=== PATIENT | male | born 1995 | race Caucasian/White ===

== ENCOUNTER 2017-03-21 09:12 | Emergency (ER) | payer BC, MEDICAID ==
[2017-03-21] MEDS ORDERED: Sodium Chloride 0.9% 10 ML Syringe FLUSH PRN (10:35)
[2017-03-21] MEDS ORDERED: Iopamidol 612 MG/ML 150 ML Bottle IVPUSH ONE (10:35)
--- NOTE | 2017-03-21 10:52 | EDM.PDOC ---
ED HPI GENERAL MEDICAL PROBLEM - General Chief Complaint: Abdominal Pain Stated Complaint: LT SIDE/RIB/SHOULDER PAIN Time Seen by Provider: 03/21/17 09:20 Source of Information: Reports: Patient History Limitations: Reports: No Limitations - History of Present Illness INITIAL COMMENTS - FREE TEXT/NARRATIVE: This is a 21-year-old male. He states over the last couple of days he' s been having pain when he breathes real deep this seems to go from his left upper quadrant up into his shoulder area. He indicates that he has fallen several times on his left side but doesn't think he's hurt anything but it was after these falls that he noticed this pain. He is also had somewhat of an upset stomach and a feeling of fullness in the left upper quadrant region. He denies any right upper quadrant tenderness or symptoms. He states that even driving on the road when he hit bumps it would cause pain it would go from his left upper quadrant into his left shoulder. He denies having fallen and any rib tenderness. He denies having held his elbow to his side when he fell or jammed it into his left upper quadrant area. He's had no fever no chills no significant cough or congestion. Right Abdomen Pain Score (Numeric/FACES): 10 - Related Data Allergies Allergy/AdvReac Type Severity Reaction Status Date / Time No Known Allergies Allergy Verified 03/21/17 09:22 Home Meds: Home Meds Hydrocodone/Acetaminophen [Hydrocodon-Acetaminophen 5-325] 1 each PO Q6H PRN # 12 tablet 03/21/17 [Rx] predniSONE 40 mg PO WITHBREAKFAST #5 tab 03/21/17 [Rx] Past Medical History - Past Surgical History HEENT Surgical History: Reports: Oral Surgery Other HEENT Surgeries/Procedures: wisdom teeth removed GI Surgical History: Reports: Hernia Repair/Other Social & Family History - Tobacco Use Smoking Status *Q: Never Smoker - Caffeine Use Caffeine Use: Reports: Coffee - Recreational Drug Use Recreational Drug Use: No ED ROS GENERAL - Review of Systems Review Of Systems: See Below Constitutional: Denies: Fever, Chills HEENT: Denies: Rhinitis Respiratory: Reports: Pleuritic Chest Pain. Denies: Cough, Hemoptysis Cardiovascular: Reports: Chest Pain. Denies: Lightheadedness Endocrine: Reports: No Symptoms GI/Abdominal: Reports: Abdominal Pain. Denies: Diarrhea, Nausea, Vomiting : Reports: No Symptoms Musculoskeletal: Reports: Shoulder Pain (Left shoulder pain that is very sharp in nature and seems to be related to his respirations and his left upper quadrant) Skin: Reports: No Symptoms Neurological: Reports: No Symptoms Psychiatric: Reports: No Symptoms Hematologic/Lymphatic: Reports: No Symptoms ED EXAM, GI/ABD - Physical Exam Exam: See Below Exam Limited By: No Limitations General Appearance: Alert, WD/WN, No Apparent Distress Eyes: Bilateral: Normal Appearance Ears: Normal External Exam Nose: Normal Inspection Throat/Mouth: Normal Inspection, Normal Lips, Normal Oropharynx, Normal Voice, No Airway Compromise Head: Normocephalic Neck: Supple Respiratory/Chest: No Respiratory Distress, Lungs Clear, Normal Breath Sounds, Other (Deep breathing seems to cause pain in his left shoulder, I palpated his ribs and the costochondral margin and none of them appear to be tender on palpation on the posterior lateral or anterior ribs or the costochondral margin on the left side or right side) Cardiovascular: Regular Rate, Rhythm, No Murmur GI/Abdominal Exam: Soft, Other (I can reproduce some of this sharp pain by deep palpation in his lateral flank area and slightly in the left upper quadrant area on palpation I do not feel his spleen however, I do not feel any organ enlargement noted) Back Exam: Full Range of Motion. No: CVA Tenderness (L), CVA Tenderness (R) Extremities: Normal Inspection, Normal Range of Motion Neurological: Alert, Oriented Psychiatric: Normal Affect, Normal Mood Skin Exam: Warm, Dry Course - Vital Signs Last Recorded V/S: Last Vital Signs Temp 97.2 F 03/21/17 09:18 Pulse 71 03/21/17 09:18 Resp 18 03/21/17 09:18 BP 145/89 H 03/21/17 09:18 Pulse Ox 100 03/21/17 09:18 - Orders/Labs/Meds Orders: Active Orders 24 hr Category Date Time Status Chest 2V [CR] Stat Exams 03/21/17 11:28 Taken Sodium Chloride 0.9% [Saline Flush] Med 03/21/17 10:35 Active 10 ml FLUSH ONETIME PRN Medication Orders Sodium Chloride (Saline Flush) 10 ml FLUSH ONETIME PRN PRN Reason: IV FLUSH Last Admin: 03/21/17 10:53 Dose: 10 ml Labs: Laboratory Tests 03/21/17 03/21/17 03/21/17 Range/Units 09:25 09:25 09:25 WBC 6.74 (4.23-9.07) K/mm3 RBC 5.09 (4.63-6.08) M/mm3 Hgb 15.5 (13.7-17.5) gm/L Hct 45.6 (40.1-51.0) % MCV 89.6 (79.0-92.2) fl MCH 30.5 (25.7-32.2) pg MCHC 34.0 (32.2-35.5) g/dl RDW Std Deviation 42.9 (35.1-43.9) fL Plt Count 153 L (163-337) K/mm3 MPV 11.4 (9.4-12.3) fl Neut % (Auto) 62.1 (34.0-67.9) % Lymph % (Auto) 22.4 (21.8-53.1) % [place] % (Auto) 11.6 (5.3-12.2) % Eos % (Auto) 3.7 (0.8-7.0) Baso % (Auto) 0.1 (0.1-1.2) % Neut # (Auto) 4.18 (1.78-5.38) K/mm3 Lymph # (Auto) 1.51 (1.32-3.57) K/mm3 [place] # (Auto) 0.78 (0.30-0.82) K/mm3 Eos # (Auto) 0.25 (0.04-0.54) K/mm3 Baso # (Auto) 0.01 (0.01-0.08) K/mm3 D-Dimer, Quantitative 0.31 (0.19-0.59) mg/L Sodium 142 (136-145) mEq/L Potassium 4.4 (3.5-5.1) mEq/L Chloride 105 (98-107) mEq/L Carbon Dioxide 29 (21-32) mEq/L Anion Gap 12.4 (5-15) BUN 12 (7-18) mg/dL Creatinine 1.3 (0.7-1.3) mg/dL Est Cr Clr Drug Dosing 99.88 mL/min Estimated GFR (MDRD) > 60 (>60) mL/min BUN/Creatinine Ratio 9.2 L (14-18) Glucose 106 (74-106) mg/dL Calcium 9.3 (8.5-10.1) mg/dL Total Bilirubin 0.9 (0.2-1.0) mg/dL AST 23 (15-37) U/L ALT 44 (16-63) U/L Alkaline Phosphatase 106 (46-116) U/L Total Protein 7.8 (6.4-8.2) g/dl Albumin 4.0 (3.4-5.0) g/dl Globulin 3.8 gm/dL Albumin/Globulin Ratio 1.1 (1-2) Meds: Medications Generic Name Dose Route Start Last Admin Trade Name Freq PRN Reason Stop Dose Admin Sodium Chloride 10 ml 03/21/17 10:35 03/21/17 10:53 Saline Flush FLUSH 10 ml ONETIME PRN Administration IV FLUSH Discontinued Medications Generic Name Dose Route Start Last Admin Trade Name Freq PRN Reason Stop Dose Admin Iopamidol 125 ml 03/21/17 10:35 03/21/17 10:53 Isovue-300 (61%) IVPUSH 03/21/17 10:36 125 ml ONETIME ONE Administration - Radiology Interpretation Free Text/Narrative:: CT the abdomen does not show any acute findings other than some increased stool in the colon the ribs the spleen all appear to be normal. Chest x-ray does not show any acute changes there is no lung contusion no obvious rib fractures LUNG noted - Re-Assessments/Exams Free Text/Narrative Re-Assessment/Exam: 03/21/17 11:32 I spoke to the patient regarding the CT scan of the abdomen and the d-dimer. It could be that he is got a pleuritic-type chest pain due to long trauma or irritation or may be a slight viral infection. I am going to do a chest x-ray on him to make sure there is no obvious abnormality to his lung tissues. 03/21/17 12:06 I spoke to the patient regarding the chest x-ray results. I believe he has a pleuritic-type chest pain may be due to his multiple falls may be skeletal viral infection. I'll place him on some prednisone and give him something to help with the soreness in the pain. Departure - Departure Time of Disposition: 12:07 Disposition: Home, Self-Care 01 Condition: Good Clinical Impression: Pleuritic chest pain - Discharge Information Prescriptions: Hydrocodone/Acetaminophen [Hydrocodon-Acetaminophen 5-325] 1 each PO Q6H PRN # 12 tablet PRN Reason: Pain predniSONE 40 mg PO WITHBREAKFAST #5 tab Referrals: PCP,None [Primary Care Provider] - Forms: ED Department Discharge Additional Instructions: Gentle activity over the next several days, take the prednisone faithfully every morning for the next 5 days to help with the pleuritic type chest pain, take the medicine for pain as needed but be very careful about taking it and doing any sort of safety or sensitive job at work since it can cloud your memory and make you sleepy, if the symptoms seem to worsen or you develop a fever return to the ER immediately. - My Orders Last 24 Hours: My Active Orders 03/21/17 10:35 Sodium Chloride 0.9% [Saline Flush] 10 ml FLUSH ONETIME PRN 03/21/17 11:28 Chest 2V [CR] Stat - Assessment/Plan Last 24 Hours: My Active Orders 03/21/17 10:35 Sodium Chloride 0.9% [Saline Flush] 10 ml FLUSH ONETIME PRN 03/21/17 11:28 Chest 2V [CR] Stat
--- NOTE | 2017-03-21 11:16 | CT ---
CT abdomen and pelvis Technique: Multiple axial sections were obtained from above the dome of the diaphragm inferiorly through the pubic symphysis. Intravenous contrast was utilized. No oral contrast has been given. Comparison: No prior study. Findings: Small portion of the visualized lung bases are clear. Liver shows no focal parenchymal abnormality. Spleen appears within normal limits. Gallbladder contains no calcified gallstones. Adrenal glands show no nodule. Kidneys show symmetric contrast enhancement without hydronephrosis or mass. Pancreas is within normal limits. Aorta shows no aneurysmal dilatation. No retroperitoneal adenopathy or mesenteric abnormalities are seen. Small fat-containing umbilical hernia is incidentally noted. No pelvic mass or adenopathy is seen. Delayed images were obtained through the bladder which shows contrast within the distal ureters and within the bladder. No pelvic mass or adenopathy is seen. Appendix is seen which appears normal in size. No inflammatory change or free fluid is seen. Mild increased stool is noted throughout the colon. Bone window settings were reviewed which appears within normal limits for the patient's age. Impression: 1. Slight increased stool within the colon. Nothing acute is identified on CT study of the abdomen and pelvis. Diagnostic code #2
--- NOTE | 2017-03-21 16:54 | CR ---
Chest: Two views of the chest are obtained. Comparison: No previous study. Minimal scoliosis is noted within the upper thoracic spine. Lungs are clear. Heart size and mediastinum are normal. Impression: 1. Incidental finding. Nothing acute is seen. Diagnostic code #2
== END 2017-03-21 12:15 | disposition home or self-care (01) ==
LOC: JD.ED 09:12
DX: R07.81 Pleurodynia (principal); Z98.890 Other specified postprocedural states
CPT/HCPCS: 36415; 71046; 74177; 80053; 85025; 85379; 99284; J7050; Q9967; 99283

== ENCOUNTER 2019-10-04 09:40 | Emergency (ER) | payer OTHER ==
--- NOTE | 2019-10-04 10:12 | EDM.PDOC ---
ED HPI GENERAL MEDICAL PROBLEM - General Chief Complaint: Abdominal Pain Stated Complaint: [facility] Time Seen by Provider: 10/04/19 10:11 Source of Information: Reports: Patient, RN Notes Reviewed - History of Present Illness INITIAL COMMENTS - FREE TEXT/NARRATIVE: 24 yr old comes in by ambulance with abd pain. Has had abd pain on and off for "5 yrs" S/P hernia surgery. Had onset of very severe lower abd pain and LQ abd pain this morning. Was given a dose of dilaudid IV by vice president process en route so having less pain at time of exam. He also has been nauseated, no vomiting or diarrhea. No fever or chills. No other prior abd surgery. No cough or difficulty breathing. Lower Suprapubic Pain Score (Numeric/FACES): 4 - Related Data Allergies Allergy/AdvReac Type Severity Reaction Status Date / Time No Known Allergies Allergy Verified 10/04/19 09:48 Home Meds: Home Meds Acetaminophen/HYDROcodone [Orient 325-5 MG] 1 tab PO Q6H PRN #10 tablet 10/04/19 [Rx] Ondansetron [Zofran ODT] 4 mg PO Q8HR PRN #7 tab.dis 10/04/19 [Rx] levoFLOXacin [Levaquin] 750 mg PO DAILY #7 tab 10/04/19 [Rx] metroNIDAZOLE [Flagyl] 500 mg PO TID #20 tablet 10/04/19 [Rx] Past Medical History - Past Surgical History HEENT Surgical History: Reports: Oral Surgery Other HEENT Surgeries/Procedures: wisdom teeth removed GI Surgical History: Reports: Hernia Repair/Other Musculoskeletal Surgical History: Reports: Other (See Below) Other Musculoskeletal Surgeries/Procedures:: 04/2019 pins and plates removed from L leg Social & Family History - Caffeine Use Caffeine Use: Reports: Coffee - Recreational Drug Use Recreational Drug Use: No ED ROS GENERAL - Review of Systems Review Of Systems: See Below Constitutional: Denies: Fever, Chills, Diaphoresis HEENT: Reports: No Symptoms Respiratory: Denies: Shortness of Breath, Cough Cardiovascular: Denies: Chest Pain GI/Abdominal: Reports: Abdominal Pain, Nausea. Denies: Diarrhea, Hematochezia, Melena, Vomiting Musculoskeletal: Reports: No Symptoms. Denies: Back Pain Skin: Reports: No Symptoms ED EXAM, GI/ABD - Physical Exam Exam: See Below General Appearance: Alert, Mild Distress Eyes: Bilateral: Normal Appearance Throat/Mouth: Normal Inspection Head: Atraumatic Neck: Supple Respiratory/Chest: Lungs Clear Cardiovascular: Regular Rate, Rhythm GI/Abdominal Exam: Tender (lower mid abd and RLQ) (Male) Exam: No Hernia Back Exam: No: CVA Tenderness (L), CVA Tenderness (R) Extremities: Normal Inspection, Normal Range of Motion Neurological: Alert, Oriented, No Motor/Sensory Deficits Course - Vital Signs Last Recorded V/S: Last Vital Signs Temp 98.2 F 10/04/19 09:45 Pulse 95 10/04/19 09:45 Resp 20 10/04/19 09:45 BP 128/80 10/04/19 09:45 Pulse Ox 100 10/04/19 09:45 - Orders/Labs/Meds Labs: Laboratory Tests 10/04/19 10/04/19 10/04/19 Range/Units 10:33 10:33 10:33 WBC 8.79 (4.23-9.07) K/mm3 RBC 5.15 (4.63-6.08) M/mm3 Hgb 15.7 (13.7-17.5) gm/dl Hct 46.0 (40.1-51.0) % MCV 89.3 (79.0-92.2) fl MCH 30.5 (25.7-32.2) pg MCHC 34.1 (32.2-35.5) g/dl RDW Std Deviation 41.6 (35.1-43.9) fL Plt Count 157 L (163-337) K/mm3 MPV 10.6 (9.4-12.3) fl Neut % (Auto) 86.3 H (34.0-67.9) % Lymph % (Auto) 5.6 L (21.8-53.1) % [place] % (Auto) 7.2 (5.3-12.2) % Eos % (Auto) 0.7 L (0.8-7.0) Baso % (Auto) 0.1 (0.1-1.2) % Neut # (Auto) 7.59 H (1.78-5.38) K/mm3 Lymph # (Auto) 0.49 L (1.32-3.57) K/mm3 [place] # (Auto) 0.63 (0.30-0.82) K/mm3 Eos # (Auto) 0.06 (0.04-0.54) K/mm3 Baso # (Auto) 0.01 (0.01-0.08) K/mm3 Manual Slide Review Abnormal smear Sodium 136 (136-145) mEq/L Potassium 3.6 (3.5-5.1) mEq/L Chloride 101 (98-107) mEq/L Carbon Dioxide 27 (21-32) mEq/L Anion Gap 11.6 (5-15) BUN 16 (7-18) mg/dL Creatinine 1.4 H (0.7-1.3) mg/dL Est Cr Clr Drug Dosing 87.76 mL/min Estimated GFR (MDRD) > 60 (>60) mL/min BUN/Creatinine Ratio 11.4 L (14-18) Glucose 100 (74-106) mg/dL Calcium 9.2 (8.5-10.1) mg/dL Total Bilirubin 0.9 (0.2-1.0) mg/dL AST 16 (15-37) U/L ALT 24 (16-63) U/L Alkaline Phosphatase 93 (46-116) U/L C-Reactive Protein 3.8 H* (<1.0) mg/dL Total Protein 7.1 (6.4-8.2) g/dl Albumin 3.9 (3.4-5.0) g/dl Globulin 3.2 gm/dL Albumin/Globulin Ratio 1.2 (1-2) Urine Color (Yellow) Urine Appearance (Clear) Urine pH (5.0-8.0) Ur Specific [place] (1.005-1.030) Urine Protein (Negative) Urine Glucose (UA) (Negative) Urine Ketones (Negative) Urine Occult Blood (Negative) Urine Nitrite (Negative) Urine Bilirubin (Negative) Urine Urobilinogen (0.2-1.0) Ur Leukocyte Esterase (Negative) Urine RBC (0-5) /hpf Urine WBC (0-5) /hpf Ur Squamous Epith Cells (0-5) /hpf Urine Bacteria (FEW) /hpf Urine Mucus (FEW) /hpf 10/04/19 Range/Units 11:57 WBC (4.23-9.07) K/mm3 RBC (4.63-6.08) M/mm3 Hgb (13.7-17.5) gm/dl Hct (40.1-51.0) % MCV (79.0-92.2) fl MCH (25.7-32.2) pg MCHC (32.2-35.5) g/dl RDW Std Deviation (35.1-43.9) fL Plt Count (163-337) K/mm3 MPV (9.4-12.3) fl Neut % (Auto) (34.0-67.9) % Lymph % (Auto) (21.8-53.1) % [place] % (Auto) (5.3-12.2) % Eos % (Auto) (0.8-7.0) Baso % (Auto) (0.1-1.2) % Neut # (Auto) (1.78-5.38) K/mm3 Lymph # (Auto) (1.32-3.57) K/mm3 [place] # (Auto) (0.30-0.82) K/mm3 Eos # (Auto) (0.04-0.54) K/mm3 Baso # (Auto) (0.01-0.08) K/mm3 Manual Slide Review Sodium (136-145) mEq/L Potassium (3.5-5.1) mEq/L Chloride (98-107) mEq/L Carbon Dioxide (21-32) mEq/L Anion Gap (5-15) BUN (7-18) mg/dL Creatinine (0.7-1.3) mg/dL Est Cr Clr Drug Dosing mL/min Estimated GFR (MDRD) (>60) mL/min BUN/Creatinine Ratio (14-18) Glucose (74-106) mg/dL Calcium (8.5-10.1) mg/dL Total Bilirubin (0.2-1.0) mg/dL AST (15-37) U/L ALT (16-63) U/L Alkaline Phosphatase (46-116) U/L C-Reactive Protein (<1.0) mg/dL Total Protein (6.4-8.2) g/dl Albumin (3.4-5.0) g/dl Globulin gm/dL Albumin/Globulin Ratio (1-2) Urine Color Yellow (Yellow) Urine Appearance Slt cloudy H (Clear) Urine pH 7.5 (5.0-8.0) Ur Specific [place] 1.020 (1.005-1.030) Urine Protein 1+ H (Negative) Urine Glucose (UA) Negative (Negative) Urine Ketones 2+ H (Negative) Urine Occult Blood Negative (Negative) Urine Nitrite Negative (Negative) Urine Bilirubin 1+ H (Negative) Urine Urobilinogen 1.0 (0.2-1.0) Ur Leukocyte Esterase Negative (Negative) Urine RBC 0-5 (0-5) /hpf Urine WBC 0-5 (0-5) /hpf Ur Squamous Epith Cells 0-5 (0-5) /hpf Urine Bacteria Few (FEW) /hpf Urine Mucus Many H (FEW) /hpf Meds: Medications Discontinued Medications Generic Name Dose Route Start Last Admin Trade Name Freq PRN Reason Stop Dose Admin Diatrizoate Meglum/Diatrizoate Sod 120 ml 10/04/19 12:57 10/04/19 13:51 Gastrografin 37% PO 10/04/19 12:58 90 ml ONETIME ONE Administration Sodium Chloride 1,000 mls @ 999 mls/hr 10/04/19 10:30 10/04/19 10:27 Normal Saline IV 999 mls/hr ONETIME ALYSSIA Administration Iopamidol 100 ml 10/04/19 12:57 10/04/19 13:51 Isovue-300 (61%) IVPUSH 10/04/19 12:58 100 ml ONETIME ONE Administration Levofloxacin 750 mg 10/04/19 15:26 10/04/19 15:46 Levaquin PO 10/04/19 15:27 750 mg Q24H ONE Administration Metronidazole 500 mg 10/04/19 15:26 10/04/19 15:46 Flagyl PO 10/04/19 15:27 500 mg ONETIME ONE Administration Ondansetron HCl 4 mg 10/04/19 10:19 10/04/19 10:27 Zofran IVPUSH 10/04/19 10:20 4 mg ONETIME ONE Administration Sodium Chloride 10 ml 10/04/19 10:18 10/04/19 10:27 Saline Flush FLUSH 10 ml ASDIRECTED PRN Administration Keep Vein Open Sodium Chloride 10 ml 10/04/19 12:57 10/04/19 13:51 Saline Flush FLUSH 10 ml ONETIME PRN Administration IV FLUSH - Re-Assessments/Exams Free Text/Narrative Re-Assessment/Exam: 10/04/19 12:30. WBC nl, CRP 3.8. glory hole tender RLQ, will CT abd and pelvis. 10/07/19 13:47. CT showed some bowel wall thickening R colon compatable with colitis, see report for details. appendix OK. Discharge instr. as documented. Departure - Departure Time of Disposition: 15:27 Disposition: Home, Self-Care 01 Condition: Fair Clinical Impression: Colitis Abdominal pain Qualifiers: Abdominal location: lower abdomen, unspecified Qualified Code(s): R10.30 - Lower abdominal pain, unspecified - Discharge Information Prescriptions: metroNIDAZOLE [Flagyl] 500 mg PO TID #20 tablet levoFLOXacin [Levaquin] 750 mg PO DAILY #7 tab Acetaminophen/HYDROcodone [Orient 325-5 MG] 1 tab PO Q6H PRN #10 tablet PRN Reason: Pain Ondansetron [Zofran ODT] 4 mg PO Q8HR PRN #7 tab.dis PRN Reason: Nausea/Vomiting Instructions: Abdominal Pain, Adult, [id number], Colitis Referrals: PCP,None [Primary Care Provider] - Forms: ED Department Discharge Additional Instructions: Clear liquids until tomorrow, than very careful bland diet as tolerated. Flagyl 3 times daily and levaquin once daily antibiotics as prescribed. You have been given first dose of each in the ED. Zofran q 8 hr if needed for nausea or vomit ing. Tylenol q 6 to 8 hr for pain or hydrocodone if needed for severe pain. Do not drive or work when taking hydrocodone. Prescriptions have been sent electronically to the [facility]. Follow up [facility] Wednesday for recheck, call for appt. Sepsis Event Note (ED) - Evaluation Sepsis Screening Result: No Definite Risk
[2019-10-04] MEDS ORDERED: Sodium Chloride 0.9% 10 ML Syringe FLUSH PRN ×2 (10:18→12:57)
[2019-10-04] MEDS ORDERED: Ondansetron 4 MG/2 ML SDV IVPUSH ONE (10:19)
[2019-10-04] MEDS ORDERED: Sodium Chloride 0.9% 1,000 ML IV SCH (10:30)
[2019-10-04] MEDS ORDERED: Diatrizoate Meglumine/Diatrizoate Sodium 37% 120 ML Bottle PO ONE (12:57)
[2019-10-04] MEDS ORDERED: Iopamidol 612 MG/ML 100 ML Bottle IVPUSH ONE (12:57)
--- NOTE | 2019-10-04 14:10 | CT ---
CT abdomen and pelvis Technique: Multiple axial sections were obtained from above the dome of the diaphragm inferiorly through the pubic symphysis. Intravenous contrast was utilized. Oral contrast has also been given. Delayed images were obtained through the bladder. Reconstructed coronal and sagittal images were also obtained of the abdomen and pelvis. Findings: Bowel wall thickening is seen within the right colon. Appendix is seen and is felt to be normal in size. Terminal ileum felt to show no bowel wall thickening. Visualized lung bases showed nothing acute. Liver shows a small low-density lesion within the right lobe measuring 3.6 mm. This is too small to characterize but most likely represents a minimal cyst. Spleen appears within normal limits. Adrenal glands show no nodule. Pancreas shows no discrete abnormality. Gallbladder contains no calcified gallstones. Kidneys show symmetric contrast enhancement without hydronephrosis or mass. Aorta shows no aneurysm. No retroperitoneal adenopathy or mesenteric abnormalities are seen. No pelvic mass or adenopathy is seen. No free fluid or inflammatory change is appreciated. Delayed images shows contrast within the distal ureters and within the bladder. Bone window settings were reviewed which shows no acute osseous finding. Impression: 1. Bowel wall thickening within the right colon compatible with a nonspecific colitis. Terminal ileum shows no bowel wall thickening. Appendix felt to be normal in size. 2. Minimal liver abnormality believed to represent 3 mm cyst. 3. No additional abnormality appreciated on CT study of the abdomen and pelvis. Diagnostic code #3 Study was dictated in MDT
[2019-10-04] MEDS ORDERED: metroNIDAZOLE 500 MG Tab PO ONE (15:26)
[2019-10-04] MEDS ORDERED: Levofloxacin 750 MG Tab PO ONE (15:26)
== END 2019-10-04 15:53 | disposition home or self-care (01) ==
LOC: JD.ED 09:40
DX: K52.9 Noninfective gastroenteritis and colitis, unspecified (principal); Z79.899 Other long term (current) drug therapy
CPT/HCPCS: 36415; 74177; 80053; 81001; 85025; 86140; 96374; 99285; A9270; J2405; J7030; Q9963; Q9967; 99284